=== PATIENT | female | born 1960 | race Two or more races ===

== ENCOUNTER 2025-04-15 12:00 | Day surgery (SDC) | payer MEDICAID, SELFPAY ==
[2025-04-14 11:27] VITALS: BMI 28.3
[2025-04-15] VITALS (10 sets, daily range): BP systolic 95–142; BP diastolic 50–86; PULSE 52–77; RESP 12–20; TEMP 36.8–37; O2SAT 97–100; BMI 26.2
[2025-04-15] MEDS: RINGERS LACTATED 1000 ML 1,000 ML 100 ML IV (13:52)
[2025-04-15] MEDS: MIDAZOLAM INJ 1 MG/ML VIAL 2 ML (ASD USE ONLY) 2 MG IVP (13:56)
[2025-04-15] MEDS: fentaNYL CIT INJ 50 mCg/ML AMP 2ML (ASD USE ONLY) IVP (14:00)
== END 2025-04-15 14:57 | disposition home or self-care (01) ==
PROVIDERS: PCP Registered Nurse; Referring Provider Surgery; Visit Provider Surgery
PROC: 0DBE8ZX Excision of Large Intestine, Via Natural or Artificial Opening Endoscopic, Diagnostic (ICD-10-PCS; CPT 45380; principal; 2025-04-15 13:00)
DX: Z12.11 Encounter for screening for malignant neoplasm of colon (principal); Z87.42 Personal history of other diseases of the female genital tract
CPT/HCPCS: 45378; J2250; J3010; J7120